=== PATIENT | female | born 1975 | race African-American/Black ===

== ENCOUNTER 2017-08-12 04:11 | Emergency (ER) | payer SELFPAY ==
[~2017-08-12] VITALS: Ht 167.6 cm; Wt 59.0 kg
[2017-08-12 05:07] VITALS: BP 129/85
== END 2017-08-12 06:30 | disposition left against medical advice (07) ==
LOC: ER 04:12
DX: R06.02 Shortness of breath (principal); Z53.21 Procedure and treatment not carried out due to patient leaving prior to being seen by health care provider